=== PATIENT | female | born 2000 | race Caucasian/White ===

== ENCOUNTER → 2021-04-02 | Emergency (ER) | payer OTHER ==
[~2021-04-02] VITALS: Ht 154.9 cm; Wt 54.4 kg
[~2021-04-02] MED LIST: LOW-OGESTREL-21 EACH PO
== END | disposition home or self-care (01) ==
LOC: ER 11:34 → EMR PED 11:34
DX: N93.8 Other specified abnormal uterine and vaginal bleeding (principal)

== ENCOUNTER 2021-07-23 08:00 | Outpatient (CLI) | payer OTHER | END 2021-07-23 08:30 | disposition home or self-care (01) | LOC: PPH VACUNA 08:00 | DX: Z23 Encounter for immunization (principal) ==

== ENCOUNTER 2021-08-13 08:15 | Outpatient (CLI) | payer OTHER | END 2021-08-13 08:25 | disposition home or self-care (01) | LOC: PPH VACUNA 08:15 | PROVIDERS: ATTEND Emergency Medicine Pediatric Emergency Medicine | DX: Z23 Encounter for immunization (principal) ==

== ENCOUNTER → 2022-01-11 | Emergency (ER) | payer OTHER ==
[~2022-01-11] VITALS: Ht 152.4 cm; Wt 55.8 kg
== END | disposition left against medical advice (07) ==
LOC: ER 12:29
DX: K52.89 Other specified noninfective gastroenteritis and colitis (principal)